=== PATIENT | male | born 1985 | race Caucasian/White ===

== ENCOUNTER 2017-08-26 15:32 | Emergency (ER) | payer OTHER ==
[2017-08-26] MEDS ORDERED: Acetaminophen 325 MG Tab PO ONE (16:12)
[2017-08-26] MEDS ORDERED: Ondansetron 4 MG/2 ML SDV IVPUSH ONE (16:12)
[2017-08-26] MEDS ORDERED: Sodium Chloride 0.9% 10 ML Syringe FLUSH PRN (16:12)
--- NOTE | 2017-08-26 17:14 | CT ---
Head CT Technique: Multiple axial sections through the brain were obtained. Intravenous contrast was not utilized. Comparison: No previous intracranial imaging. Findings: Lateral ventricles are asymmetric in size which is a normal variant. Size of the ventricles is otherwise within normal limits. No abnormal parenchymal densities are seen. No evidence of intracranial hemorrhage. No midline shift or mass effect is seen. Bone window settings were reviewed which shows mild mucosal thickening within the ethmoid sinuses. No acute calvarial abnormality is seen. Impression: 1. Mild sinus findings which are likely incidental. 2. Nothing acute is identified on noncontrast head CT exam. Diagnostic code #2
--- NOTE | 2017-08-26 19:00 | EDM.PDOC ---
ED HPI GENERAL MEDICAL PROBLEM - General Chief Complaint: General Stated Complaint: DIZZINESS,BLURRED VISION,FAINTED Time Seen by Provider: 08/26/17 15:41 Source of Information: Reports: Patient, RN Notes Reviewed - History of Present Illness INITIAL COMMENTS - FREE TEXT/NARRATIVE: 32-year-old male has not felt well for the last 2 or 3 days. He feels like he has had low energy, chills, headache, nonspecific dizziness worse with standing and motion. He states at times he feels unsteady on his feet. He did pass out this past morning briefly, does not think he hit his head real hard but unsure of that. No focal weakness. No speech difficulty. At times he feels that his vision is "fuzzy, more difficult to focus than usual. backside of head Pain Score (Numeric/FACES): 8 - Related Data Allergies Allergy/AdvReac Type Severity Reaction Status Date / Time hydrocodone Allergy Swollen Verified 08/26/17 15:46 Tongue Home Meds: Home Meds . [No Known Home Meds] 06/17/14 [History] Past Medical History - Past Health History Medical/Surgical History: Denies Medical/Surgical History Cardiovascular History: Reports: Hypertension Respiratory History: Reports: Other (See Below) Other Respiratory History: "series of lung issues" Neurological History: Reports: Concussion Hematologic History: Reports: Anemia - Past Surgical History HEENT Surgical History: Reports: Other (See Below) Other HEENT Surgeries/Procedures: facial reconstruction, jaw repair, orbital bone repair Musculoskeletal Surgical History: Reports: Other (See Below) Other Musculoskeletal Surgeries/Procedures:: left knee surgery x 3, hand surgery Social & Family History - Family History Family Medical History: Noncontributory - Tobacco Use Smoking Status *Q: Current Every Day Smoker Years of Tobacco use: 10 Packs/Tins Daily: 1 - Caffeine Use Caffeine Use: Reports: Coffee - Alcohol Use Days Per Week of Alcohol Use: 3 Number of Drinks Per Day: 4 Total Drinks Per Week: 12 Date of Last Drink: 08/23/17 - Recreational Drug Use Recreational Drug Use: No ED ROS GENERAL - Review of Systems Review Of Systems: See Below Constitutional: Reports: Chills. Denies: Fever HEENT: Reports: Rhinitis, Vertigo. Denies: Sinus Problem, Throat Pain Respiratory: Reports: Cough. Denies: Shortness of Breath (Worse with motion) Cardiovascular: Denies: Chest Pain (Occasion) Endocrine: Reports: Fatigue GI/Abdominal: Reports: Nausea. Denies: Abdominal Pain, Diarrhea, Vomiting ( Intermittent) Musculoskeletal: Reports: Other (Dentalized achiness) Skin: Denies: Rash Neurological: Reports: Dizziness, Headache. Denies: Trouble Speaking, Weakness ED EXAM, GENERAL - Physical Exam Exam: See Below General Appearance: Alert, No Apparent Distress Eye Exam: Bilateral Eye: PERRL Ears: Normal External Exam, Normal Canal, Normal TMs Nose: Normal Inspection Throat/Mouth: Normal Inspection, Normal Oropharynx Head: Atraumatic. No: Facial Swelling Neck: Supple Respiratory/Chest: No Respiratory Distress, Lungs Clear, Normal Breath Sounds Cardiovascular: Regular Rate, Rhythm Back Exam: No: CVA Tenderness (L), CVA Tenderness (R) Extremities: Normal Inspection, Normal Range of Motion Neurological: Alert, Oriented, No Motor/Sensory Deficits Skin Exam: Warm, Dry, Normal Color Course - Vital Signs Last Recorded V/S: Last Vital Signs Temp 97.5 F 08/26/17 15:39 Pulse 78 08/26/17 15:39 Resp 18 08/26/17 15:39 BP 160/106 H 08/26/17 15:39 Pulse Ox 98 08/26/17 15:39 - Orders/Labs/Meds Orders: Active Orders 24 hr Category Date Time Status Peripheral IV Care [RC] . DIRECTED Care 08/26/17 16:12 Active Sodium Chloride 0.9% [Saline Flush] Med 08/26/17 16:12 Active 10 ml FLUSH ASDIRECTED PRN Peripheral IV Insertion Adult [OM.PC] Stat Oth 08/26/17 16:12 Ordered Medication Orders Sodium Chloride (Saline Flush) 10 ml FLUSH ASDIRECTED PRN PRN Reason: Keep Vein Open Last Admin: 08/26/17 16:33 Dose: 10 ml Labs: Laboratory Tests 08/26/17 08/26/17 Range/Units 16:40 16:40 WBC 5.82 (4.23-9.07) K/mm3 RBC 5.36 (4.63-6.08) M/mm3 Hgb 16.2 (13.7-17.5) gm/L Hct 44.5 (40.1-51.0) % MCV 83.0 (79.0-92.2) fl MCH 30.2 (25.7-32.2) pg MCHC 36.4 H (32.2-35.5) g/dl RDW Std Deviation 37.1 (35.1-43.9) fL Plt Count 200 (163-337) K/mm3 MPV 9.0 L (9.4-12.3) fl Neut % (Auto) 61.9 (34.0-67.9) % Lymph % (Auto) 28.2 (21.8-53.1) % [place] % (Auto) 7.7 (5.3-12.2) % Eos % (Auto) 1.9 (0.8-7.0) Baso % (Auto) 0.3 (0.1-1.2) % Neut # (Auto) 3.60 (1.78-5.38) K/mm3 Lymph # (Auto) 1.64 (1.32-3.57) K/mm3 [place] # (Auto) 0.45 (0.30-0.82) K/mm3 Eos # (Auto) 0.11 (0.04-0.54) K/mm3 Baso # (Auto) 0.02 (0.01-0.08) K/mm3 Sodium 143 (136-145) mEq/L Potassium 4.0 (3.5-5.1) mEq/L Chloride 106 (98-107) mEq/L Carbon Dioxide 25 (21-32) mEq/L Anion Gap 16.0 H (5-15) BUN 22 H (7-18) mg/dL Creatinine 1.1 (0.7-1.3) mg/dL Est Cr Clr Drug Dosing 107.95 mL/min Estimated GFR (MDRD) > 60 (>60) mL/min BUN/Creatinine Ratio 20.0 H (14-18) Glucose 94 (74-106) mg/dL Calcium 9.2 (8.5-10.1) mg/dL Total Bilirubin 0.9 (0.2-1.0) mg/dL AST 33 (15-37) U/L ALT 88 H (16-63) U/L Alkaline Phosphatase 52 (46-116) U/L Total Protein 7.5 (6.4-8.2) g/dl Albumin 4.0 (3.4-5.0) g/dl Globulin 3.5 gm/dL Albumin/Globulin Ratio 1.1 (1-2) Meds: Medications Generic Name Dose Route Start Last Admin Trade Name Kit PRN Reason Stop Dose Admin Sodium Chloride 10 ml 08/26/17 16:12 08/26/17 16:33 Saline Flush FLUSH 10 ml ASDIRECTED PRN Administration Keep Vein Open Discontinued Medications Generic Name Dose Route Start Last Admin Trade Name Kit PRN Reason Stop Dose Admin Acetaminophen 975 mg 08/26/17 16:12 08/26/17 16:34 Tylenol PO 08/26/17 16:13 975 mg NOW ONE Administration Ondansetron HCl 4 mg 08/26/17 16:12 08/26/17 16:33 Zofran IVPUSH 08/26/17 16:13 4 mg ONETIME ONE Administration - Re-Assessments/Exams Free Text/Narrative Re-Assessment/Exam: 08/26/17 19:16 Labs have come back relatively normal, head CT was good. We have given Tylenol and Zofran ODT, discharge instructions as documented Departure - Departure Time of Disposition: 19:00 Disposition: Home, Self-Care 01 Condition: Fair Clinical Impression: Viral syndrome Labyrinthitis Qualifiers: Laterality: unspecified laterality Qualified Code(s): H83.09 - Labyrinthitis, unspecified ear - Discharge Information Instructions: Labyrinthitis, [id number] Referrals: PCP,None [Primary Care Provider] - Forms: ED Department Discharge Additional Instructions: Rest, move slowly and carefully, consider Antivert one quarter or one half of a 25 mg tablet 2-3 times daily which is helpful for vertigo type dizziness. Drink plenty of water to maintain hydration, follow up clinic if not much better within 2-3 days, Tylenol 1000 mg every 8 hours as needed for further headache or other discomfort., Return to ED as needed if symptoms worsening in any way. - My Orders Last 24 Hours: My Active Orders 08/26/17 16:12 Peripheral IV Care [RC] . DIRECTED Sodium Chloride 0.9% [Saline Flush] 10 ml FLUSH ASDIRECTED PRN Peripheral IV Insertion Adult [OM.PC] Stat - Assessment/Plan Last 24 Hours: My Active Orders 08/26/17 16:12 Peripheral IV Care [RC] . DIRECTED Sodium Chloride 0.9% [Saline Flush] 10 ml FLUSH ASDIRECTED PRN Peripheral IV Insertion Adult [OM.PC] Stat
== END 2017-08-26 19:10 | disposition home or self-care (01) ==
LOC: JD.ED 15:32
DX: H83.09 Labyrinthitis, unspecified ear (principal); B34.9 Viral infection, unspecified; F17.210 Nicotine dependence, cigarettes, uncomplicated; Z88.6 Allergy status to analgesic agent
CPT/HCPCS: 36415; 70450; 80053; 85025; 87804; 96374; 99284; A9270; J2405; J7050; 99283

== ENCOUNTER 2017-09-20 12:24 | Emergency (ER) | payer OTHER ==
[2017-09-20] MEDS ORDERED: Sodium Chloride 0.9% 10 ML Syringe FLUSH PRN (12:44)
[2017-09-20] MEDS ORDERED: LORazepam 2 MG/ML SDV IVPUSH ONE (12:44)
[2017-09-20] MEDS ORDERED: Sodium Chloride 0.9% 500 ML IV ONE (12:44)
--- NOTE | 2017-09-20 14:43 | CR ---
Chest: Portable view of the chest was obtained. Comparison: Prior chest x-ray of 06/17/14. Heart size and mediastinum are normal. Lungs are clear. Bony structures are grossly intact. Impression: 1. Nothing acute is identified on portable chest x-ray. Diagnostic code #1
--- NOTE | 2017-09-20 15:48 | EDM.PDOC ---
ED HPI GENERAL MEDICAL PROBLEM - General Chief Complaint: Chest Pain Stated Complaint: [facility] Time Seen by Provider: 09/20/17 12:36 Source of Information: Reports: Patient, RN Notes Reviewed - History of Present Illness INITIAL COMMENTS - FREE TEXT/NARRATIVE: 32-year-old male has been brought down by [facility] for evaluation frequent chest pains this morning. Patient states he's been having difficulty with this for about the past week but more frequent since last evening. He will get a sharp shooting pain of the left anterior chest and then have "spasm across his chest be even more intense. This has been occurring frequently today. He denies known history for hypertension, diabetes, coronary artery disease. He does not smoke. He states there is some history for heart disease in his family. Middle Chest Pain Score (Numeric/FACES): 10 - Related Data Allergies Allergy/AdvReac Type Severity Reaction Status Date / Time hydrocodone Allergy Swollen Verified 08/26/17 15:46 Tongue Home Meds: Home Meds LORazepam [Ativan] 0.5 mg PO BID #14 tab 09/20/17 [Rx] Naproxen [Naprosyn] 500 mg PO Q12HR #14 tab 09/20/17 [Rx] Past Medical History - Past Health History Medical/Surgical History: Denies Medical/Surgical History Cardiovascular History: Reports: Hypertension Respiratory History: Reports: Other (See Below) Other Respiratory History: "series of lung issues" Neurological History: Reports: Concussion Psychiatric History: Reports: Other (See Below) 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 Hematologic History: Reports: Anemia - Past Surgical History HEENT Surgical History: Reports: Other (See Below) Other HEENT Surgeries/Procedures: facial reconstruction, jaw repair, orbital bone repair Musculoskeletal Surgical History: Reports: Other (See Below) Other Musculoskeletal Surgeries/Procedures:: left knee surgery x 3, hand surgery Social & Family History - Family History Family Medical History: Noncontributory - Tobacco Use Smoking Status *Q: Current Every Day Smoker Years of Tobacco use: 10 Packs/Tins Daily: 0.5 - Caffeine Use Caffeine Use: Reports: Coffee, Soda Other Caffeine Use: 1-2 cups daily - Alcohol Use Days Per Week of Alcohol Use: 3 Number of Drinks Per Day: 4 Total Drinks Per Week: 12 - Recreational Drug Use Recreational Drug Use: No ED ROS GENERAL - Review of Systems Review Of Systems: See Below Constitutional: Denies: Fever, Chills, Diaphoresis HEENT: Denies: Sinus Problem, Throat Pain Respiratory: Reports: Pleuritic Chest Pain. Denies: Shortness of Breath, Wheezing, Cough Cardiovascular: Reports: Chest Pain (Anterior chest discomfort, episodes of sharp shooting stabbing pains more frequently the past 2 or 3 days but present for the past week to 10 days. This morning he is getting out spasms of discomfort across his chest without radiation. With that he then feels short of breath. Also had numbness and tingling develop both hands.) GI/Abdominal: Denies: Abdominal Pain, Nausea, Vomiting Musculoskeletal: Denies: Neck Pain, Shoulder Pain, Arm Pain, Back Pain, Leg Pain Skin: Reports: No Symptoms Neurological: Reports: Numbness (Bilateral hands). Denies: Trouble Speaking, Change in Speech ED EXAM, GENERAL - Physical Exam Exam: See Below General Appearance: Alert, Anxious, Other (Hyperventilating upon arrival to ED) Eye Exam: Bilateral Eye: PERRL Ears: Normal External Exam Throat/Mouth: Normal Inspection, Normal Oropharynx Head: Atraumatic. No: Facial Swelling Neck: Supple, Full Range of Motion, Other (No JVD) Respiratory/Chest: Lungs Clear, Normal Breath Sounds, Respiratory Distress ( Tachypnea component arrival to ED). No: Rhonchi, Wheezing Cardiovascular: Regular Rate, Rhythm GI/Abdominal: Soft, Non-Tender Extremities: Normal Inspection, Normal Range of Motion. No: Pedal Edema, Leg Pain Neurological: Alert, Oriented, No Motor/Sensory Deficits Skin Exam: Warm, Dry, Normal Color, No Rash EKG INTERPRETATION EKG Date: 09/20/17 Rhythm: NSR [place]: Normal P-Wave: Present QRS: Normal ST-T: Normal Course - Vital Signs Last Recorded V/S: Last Vital Signs Temp 97.8 F 09/20/17 12:34 Pulse 77 09/20/17 15:31 Resp 18 09/20/17 15:31 BP 136/90 09/20/17 15:31 Pulse Ox 97 09/20/17 15:31 - Orders/Labs/Meds Orders: Active Orders 24 hr Category Date Time Status EKG 12 Lead [EKG Documentation Completion] [RC] STAT Care 09/20/17 12:44 Active EKG 12 Lead [EKG Documentation Completion] [RC] STAT Care 09/20/17 13:55 Active Peripheral IV Care [RC] . DIRECTED Care 09/20/17 12:44 Active Peripheral IV Insertion Adult [OM.PC] Stat Oth 09/20/17 12:44 Ordered Labs: Laboratory Tests 09/20/17 09/20/17 09/20/17 Range/Units 13:28 13:28 13:28 WBC 5.57 (4.23-9.07) K/mm3 RBC 4.97 (4.63-6.08) M/mm3 Hgb 15.2 (13.7-17.5) gm/L Hct 41.5 (40.1-51.0) % MCV 83.5 (79.0-92.2) fl MCH 30.6 (25.7-32.2) pg MCHC 36.6 H (32.2-35.5) g/dl RDW Std Deviation 37.1 (35.1-43.9) fL Plt Count 189 (163-337) K/mm3 MPV 8.5 L (9.4-12.3) fl Neut % (Auto) 70.2 H (34.0-67.9) % Lymph % (Auto) 19.6 L (21.8-53.1) % [place] % (Auto) 9.5 (5.3-12.2) % Eos % (Auto) 0.5 L (0.8-7.0) Baso % (Auto) 0.2 (0.1-1.2) % Neut # (Auto) 3.91 (1.78-5.38) K/mm3 Lymph # (Auto) 1.09 L (1.32-3.57) K/mm3 [place] # (Auto) 0.53 (0.30-0.82) K/mm3 Eos # (Auto) 0.03 L (0.04-0.54) K/mm3 Baso # (Auto) 0.01 (0.01-0.08) K/mm3 Manual Slide Review Normal smear ESR (0-15) mm/hr Sodium 142 (136-145) mEq/L Potassium 3.6 (3.5-5.1) mEq/L Chloride 110 H (98-107) mEq/L Carbon Dioxide 24 (21-32) mEq/L Anion Gap 11.6 (5-15) BUN 13 (7-18) mg/dL Creatinine 1.0 (0.7-1.3) mg/dL Est Cr Clr Drug Dosing 111.90 mL/min Estimated GFR (MDRD) > 60 (>60) mL/min BUN/Creatinine Ratio 13.0 L (14-18) Glucose 118 H (74-106) mg/dL Calcium 8.5 (8.5-10.1) mg/dL Total Bilirubin 1.4 H (0.2-1.0) mg/dL AST 31 (15-37) U/L ALT 45 (16-63) U/L Alkaline Phosphatase 39 L (46-116) U/L Troponin I < 0.017 (0.00-0.056) ng/mL C-Reactive Protein (<1.0) mg/dL Total Protein 6.8 (6.4-8.2) g/dl Albumin 3.7 (3.4-5.0) g/dl Globulin 3.1 gm/dL Albumin/Globulin Ratio 1.2 (1-2) 09/20/17 09/20/17 Range/Units 13:28 13:28 WBC (4.23-9.07) K/mm3 RBC (4.63-6.08) M/mm3 Hgb (13.7-17.5) gm/L Hct (40.1-51.0) % MCV (79.0-92.2) fl MCH (25.7-32.2) pg MCHC (32.2-35.5) g/dl RDW Std Deviation (35.1-43.9) fL Plt Count (163-337) K/mm3 MPV (9.4-12.3) fl Neut % (Auto) (34.0-67.9) % Lymph % (Auto) (21.8-53.1) % [place] % (Auto) (5.3-12.2) % Eos % (Auto) (0.8-7.0) Baso % (Auto) (0.1-1.2) % Neut # (Auto) (1.78-5.38) K/mm3 Lymph # (Auto) (1.32-3.57) K/mm3 [place] # (Auto) (0.30-0.82) K/mm3 Eos # (Auto) (0.04-0.54) K/mm3 Baso # (Auto) (0.01-0.08) K/mm3 Manual Slide Review ESR 7 (0-15) mm/hr Sodium (136-145) mEq/L Potassium (3.5-5.1) mEq/L Chloride (98-107) mEq/L Carbon Dioxide (21-32) mEq/L Anion Gap (5-15) BUN (7-18) mg/dL Creatinine (0.7-1.3) mg/dL Est Cr Clr Drug Dosing mL/min Estimated GFR (MDRD) (>60) mL/min BUN/Creatinine Ratio (14-18) Glucose (74-106) mg/dL Calcium (8.5-10.1) mg/dL Total Bilirubin (0.2-1.0) mg/dL AST (15-37) U/L ALT (16-63) U/L Alkaline Phosphatase (46-116) U/L Troponin I (0.00-0.056) ng/mL C-Reactive Protein < 0.2 (<1.0) mg/dL Total Protein (6.4-8.2) g/dl Albumin (3.4-5.0) g/dl Globulin gm/dL Albumin/Globulin Ratio (1-2) Meds: Medications Discontinued Medications Generic Name Dose Route Start Last Admin Trade Name Freq PRN Reason Stop Dose Admin Sodium Chloride 500 mls @ 999 mls/hr 09/20/17 12:44 09/20/17 12:54 Normal Saline IV 09/20/17 13:14 999 mls/hr .BOLUS ONE Administration Lorazepam 0.5 mg 09/20/17 12:44 09/20/17 12:54 Ativan IVPUSH 09/20/17 12:45 0.5 mg ONETIME ONE Administration Sodium Chloride 10 ml 09/20/17 12:44 09/20/17 12:54 Saline Flush FLUSH 10 ml ASDIRECTED PRN Administration Keep Vein Open - Re-Assessments/Exams Free Text/Narrative Re-Assessment/Exam: 09/20/17 19:11. We did give patient Ativan 1 mg IV shortly after arrival to ED. Extremely anxious, hyperventilating with bilateral hand paresthesias and also having frequent what appeared like spasms of discomfort across his chest. He had had morphine 4 mg IV while in route. Ambulance. With the Ativan and 20-30 minutes of time he did become much more relaxed. Heart rate slowed down from the mid 90s to mid 70s. Potassium low range normal. Remainder of labs are relatively normal including troponin. 09/20/17 19:14 chest x-ray was normal. Did also check sedimentation rate, C- reactive protein with consideration for possible pericarditis. Those both did come back normal. Order written for echocardiogram. It is now late Saturday afternoon so that will not get done until early next week. Discharge instructions as documented. Departure - Departure Time of Disposition: 16:18 Disposition: Home, Self-Care 01 Condition: Fair Clinical Impression: Rapid palpitations, Atypical chest pain, Chest wall pain Prescriptions: Naproxen [Naprosyn] 500 mg PO Q12HR #14 tab LORazepam [Ativan] 0.5 mg PO BID #14 tab Instructions: Palpitations, [id number] Referrals: PCP,None [Primary Care Provider] - Forms: ED Department Discharge Additional Instructions: Naprosyn 500 mg twice daily for anterior chest discomfort and inflammation where your ribs on the left join or articulate with the sternum. You may take Tylenol in between doses for extra pain relief if needed. Ativan 0.5 mg twice daily for muscle and nerve relaxation. That should help reduce the spasms she would have an earlier this morning. If that is making it too sleepy you can cut those in half and go to a quarter milligram 2 or 3 times daily. Echocardiogram early next week. If you are not given a time on discharge than radiology will call you Saturday for a time to come in and have that done. Follow-up with [facility] around the middle of next week for results of your event recorder study and then also for results of your echocardiogram test. Return to ED as needed if symptoms worsening in any way. - My Orders Last 24 Hours: My Active Orders 09/20/17 12:44 EKG 12 Lead [EKG Documentation Completion] [RC] STAT Peripheral IV Care [RC] . DIRECTED Peripheral IV Insertion Adult [OM.PC] Stat 09/20/17 13:55 EKG 12 Lead [EKG Documentation Completion] [RC] STAT - Assessment/Plan Last 24 Hours: My Active Orders 09/20/17 12:44 EKG 12 Lead [EKG Documentation Completion] [RC] STAT Peripheral IV Care [RC] . DIRECTED Peripheral IV Insertion Adult [OM.PC] Stat 09/20/17 13:55 EKG 12 Lead [EKG Documentation Completion] [RC] STAT
== END 2017-09-20 16:40 | disposition home or self-care (01) ==
LOC: JD.ED 12:24
DX: R07.89 Other chest pain (principal); R00.2 Palpitations; R06.4 Hyperventilation; Z88.5 Allergy status to narcotic agent; I10 Essential (primary) hypertension; F17.210 Nicotine dependence, cigarettes, uncomplicated
CPT/HCPCS: 36415; 71045; 80053; 84484; 85025; 85652; 86140; 93005; 96361; 96374; 99285; J2060; J7040; J7050; 99284